=== PATIENT | male | born 1950 | race Caucasian/White ===

== ENCOUNTER 2019-02-03 08:42 | Outpatient (CLI) | payer MEDICARE ==
--- NOTE | 2019-02-03 15:17 | NM ---
NUCLEAR MEDICINE BRAIN IMAGING: Date: 02/03/19 HISTORY: Parkinson's disease. TECHNIQUE: A DaTscan with axial tomographic images of the brain was obtained 3 hours following the intravenous a dministration of 5.4 mCi Iodine-123 Ioflupane. The patient was pretreated with 130 mg of potassium io dide orally 1 hour prior to the injection. FINDINGS: There is loss of normal symmetric uptake in the striata bilaterally. IMPRESSION: Parkinsonian syndrome. POS: [facility]
== END 2019-02-03 08:43 | disposition home or self-care (01) ==
LOC: NM 08:42
DX: G20 Parkinson's disease (principal); R41.0 Disorientation, unspecified; R44.1 Visual hallucinations
CPT/HCPCS: 78607; A9584